=== PATIENT | female | born 1950 | race Caucasian/White ===

== ENCOUNTER 2017-03-28 05:54 | Day surgery (SDC) | payer OTHER, BC ==
[2017-03-19 15:52] VITALS: BMI 38.0
[2017-03-28] MEDS ORDERED: GENTAMICIN SO4 80 MG/2 ML VIAL ONE (07:24)
[2017-03-28] MEDS ORDERED: ceFAZolin SODIUM 1 GM VIAL ONE ×2 (07:24→07:59)
[2017-03-28] MEDS ORDERED: BUPIVACAINE HCL/PF 2.5 MG/ML - 30 ML VIAL IJ ONE (07:25)
[2017-03-28] MEDS ORDERED: MIDAZOLAM HCL 2 MG/2 ML SINGLE DOSE VIAL ONE (07:29)
[2017-03-28] MEDS ORDERED: ROCURONIUM BROMIDE 50 MG/5 ML VIAL ONE (07:29)
[2017-03-28] MEDS ORDERED: PROPOFOL 20 ML ONE (07:29)
[2017-03-28] MEDS ORDERED: DEXAMETHASONE SOD PHOSPHATE 4 MG/1 ML VIAL ONE ×2 (08:07→09:34)
[2017-03-28] MEDS ORDERED: ONDANSETRON 4 MG/2 ML VIAL ONE ×2 (08:07→09:34)
[2017-03-28] MEDS ORDERED: LIDOCAINE 1%/EPI 1:100000 (20 ML MULTI DOSE VIAL) INF ONE (08:16)
[2017-03-28] MEDS ORDERED: HYDROmorphone HCL/PF 1 MG/ML VIAL (FOR PYXIS CHARGING ONLY) ONE (08:22)
[2017-03-28] MEDS ORDERED: ePHEDrine SULFATE 50 MG/1 ML AMPULE ONE (08:39)
[2017-03-28] MEDS ORDERED: ONDANSETRON 4 MG/2 ML VIAL IVPUSH PRN (10:10)
[2017-03-28] MEDS ORDERED: oxyCODONE HCL 5 MG TABLET PO PRN (10:10)
[2017-03-28] MEDS ORDERED: ACETAMINOPHEN 325 MG TABLET (FP) PO PRN (10:10)
--- NOTE | 2017-03-28 10:11 | OP ---
Operative Note - Note: Operative Date: 03/28/17 Pre-Operative Diagnosis: chest wall deformity s/p breast reconstruction Operation: right TE exchange with silicone exchange, Left breast mastopexy with silicone implant placement, fat graphing from abdomen and flanks to right breast Findings: same Post-Operative Diagnosis: Same as Pre-op Surgeon: Shelton Ag Senior Research Fellow: Brii Weldon Anesthesiologist/BARREL CENTERER: Kamran Garcia Anesthesia: Local, MAC Estimated Blood Loss (mls): 50 Drains & Tubes with Location: none Operative Report Dictated: Yes
[2017-03-28] MEDS ORDERED: ACETAMINOPHEN INJECTION 100 ML IVPB ONE (10:47)
[2017-03-28] MEDS ORDERED: ACETAMINOPHEN 1000 MG/100 ML VIAL (NON FORMULARY) IVPB ONE (10:54)
[2017-03-28] MEDS ORDERED: oxyCODONE HCL 5 MG TABLET ONE ×2 (12:07→12:43)
[2017-03-28 12:19] VITALS: TEMP 98
[2017-03-28 14:53] VITALS: BP 136/71; PULSE 84
--- NOTE | 2017-04-01 11:36 | PATH ---
Surgical Pathology Report Patient Name: KATHARINA RODRIGUEZ [facility]. Rec. #: [id number] /Age/Gender: 1950 (Age: 66) / F Account: [id number] Location: [facility] AM[facility] Taken: 03/28/2017 Received: 03/28/2017 Reported: 04/01/2017 Physicians: Shelton Ag Specimen(s) Received A: RIGHT BREAST CAPSULE B: RIGHT BREAST EXPLANT C: LEFT BREAST SKIN AND TISSUE Clinical History Right post mastectomy Final Diagnosis A. SOFT TISSUE, RIGHT BREAST, EXCISION: FIBROUS TISSUE WITH AREAS OF FOREIGN BODY REACTION CONSISTENT WITH BREAST IMPLANT CAPSULE. NO CARCINOMA IDENTIFIED. B. CHROME TANNER, RIGHT BREAST, REMOVAL: BREAST IMPLANT (GROSS ONLY). C. SKIN AND SOFT TISSUE, LEFT BREAST, EXCISION: BENIGN SKIN AND SUBCUTANEOUS ADIPOSE TISSUE. Comment: See also [id number]. Electronically Signed Shaka Leslie M.D. Gross Description A. Received in formalin labeled "right breast capsule," is a 4.0 x 2.3 x 0.5 cm aggregate of multiple lopez, irregular portions of fibrous tissue, consistent with fibrous capsule. No discrete masses are identified. Motor Vehicle Escort Driver sections are submitted in one cassette. B. Received fresh labeled "right breast explant," is a 13.0 x 12.0 x 3.0 cm lopez, irregular device, consistent with a breast tissue stripper shovel operator. No soft tissue is present. No sections are submitted, gross only. C. Received in formalin labeled "left breast skin and tissue," is a 28 g, 7.0 x 6.5 x 2.0 cm aggregate of lopez, unremarkable skin fragments as well as a portion of fibroadipose tissue. Sectioning reveals minimal fibrous tissue. No definitive masses are identified. Motor Vehicle Escort Driver sections are submitted in one cassette. DL/03/29/2017 saudi03/29/2017
--- NOTE | 2017-04-03 10:00 | OP ---
DATE OF OPERATION: 03/28/2017 SURGEON: Hubert Ag MD ASSOCIATE TRAINER SURGEON: DOMINIC Garcia PREOPERATIVE DIAGNOSES: 1. Right acquired chest wall deformity status post right mastectomy for breast cancer. 2. Asymmetry of reconstructed chest wall. 3. Personal history of breast carcinoma. 4. Mechanical complication of breast implant. POSTOPERATIVE DIAGNOSES: 1. Right acquired chest wall deformity status post right mastectomy for breast cancer. 2. Asymmetry of reconstructed chest wall. 3. Personal history of breast carcinoma. 4. Mechanical complication of breast implant. OPERATIVE PROCEDURE: 1. Right breast reconstruction utilizing other technique. 2. Right breast capsulectomy. 3. Right breast removal of implant. 4. Replacement of right breast implant for reconstruction. 5. Left breast augmentation for symmetry in cancer. 6. Left breast mastopexy. OPERATIVE INDICATION: The patient is a woman who underwent right breast mastectomy for breast cancer and now presents with gross asymmetry of the chest wall and requires the above procedures. The risks and benefits of surgical versus nonsurgical alternatives as well as the material complications were described to the patient on multiple occasions preoperatively. She agreed to the planned procedure prior and also today in the holding area where she was marked in the standing position. OPERATIVE PROCEDURE IN DETAIL: The patient was taken to the operating room where after an induction of general anesthesia in supine position, both arms were extended and padded and Venodyne boots were placed. The entire chest wall was prepped with ChloraPrep solution over the chest and abdomen. At this point sterile drapes were placed in the usual fashion and timeout was called. After allowing topical anesthesia and hemostasis, injection was made into the deep areas of the flank region for harvest of reconstructive tissue, and also the right mastectomy scar was injected with 1% local lidocaine anesthesia with 1:100,000 epinephrine. The left breast was circumscribed with a No. 42 nipple-areolar cutter, and the pattern which was made for James mastopexy on the left breast. These areas were injected with 1% local lidocaine anesthesia, 1:100,000 epinephrine. At this point an incision was made through the mastectomy scar down through the subcutaneous tissue to the deep tissues of the chest wall. This was carried over the fascia of the breast and then down to the underlying capsule. I then performed a capsulectomy by incising the capsule and removing the implant. This was sent for pathologic diagnosis. Once this was removed, the expansion of the pocket was created. A capsulectomy was performed, removing portions of the capsule and sending them for pathologic diagnosis. The pocket was expanded to accept the new implant, which was placed after copious irrigation with triple antibiotic solution and hemostasis. A Natrelle 605-mL Inspira cohesive breast implant, style SCF, was placed into the right breast pocket. Good shape and contour were seen, but further reconstruction was required. Incision was made in the flank area down through the skin into the deep subcutaneous tissue, harvesting tissue for the reconstruction of the right breast. This tissue was transferred to the back table and prepared for reconstructive purposes. It was washed, cleansed, and prepared. At this point attention was turned to the left breast. A circumareolar incision was made around the No. 42 nipple-areolar cutter. The area was deepithelialized according to the pattern, and then an incision was made down through the deep tissue of the breast down to underlying subcutaneous tissue of the chest wall. A pocket was created superiorly from the second rib medially to the sternal fibers and laterally to the anterior axillary fold and down to the inframammary fold. At this point an implant was chosen to match the opposite side. A Natrelle 410 highly cohesive anatomically shaped silicone-filled breast implant of style FM, 350 mL, was placed into the left breast pocket. Good shape and contour were seen with tacking, and then wounds were advanced to close upon themselves using 2-0 PDS suture on the deep tissue, 3-0 PDS on the deep dermal tissue, and the nipple was circumscribed into its new position and tacked using 3-0 Biosyn and 4-0 Biosyn in a subcuticular fashion. The right chest wall wound was then addressed. The tissue was transferred to the superior, inferior, medial, and central portions of the right reconstructed breast and showed good shape and contour with symmetry to the opposite side. The wound was closed in multiple layers using 2-0 PDS suture on the deep fascia and capsule, 2-0 in the deep subcutaneous plane, and then 4-0 Biosyn in a subcuticular fashion. All wounds were dressed sterilely with Dermabond and Steri-Strips. She tolerated the procedure well. She was placed into a Surgi-Bra on the operating room table, awakened, and transferred after extubation to the recovery room. HUBERT AG M.D. [id number]
== END 2017-03-28 13:55 | disposition home or self-care (01) ==
LOC: FASU 05:54
PROVIDERS: ATTEND Plastic Surgery
PROC: 0H0U0JZ Alteration of Left Breast with Synthetic Substitute, Open Approach (ICD-10-PCS; 2017-03-28)
PROC: 0HPT0JZ Removal of Synthetic Substitute from Right Breast, Open Approach (ICD-10-PCS; principal; 2017-03-28 08:16)
PROC: 0HRT0JZ Replacement of Right Breast with Synthetic Substitute, Open Approach (ICD-10-PCS; 2017-03-28 08:16)
PROC: 0HRT07Z Replacement of Right Breast with Autologous Tissue Substitute, Open Approach (ICD-10-PCS; 2017-03-28 08:16)
DX: M95.4 Acquired deformity of chest and rib (principal); Z90.11 Acquired absence of right breast and nipple; Z85.3 Personal history of malignant neoplasm of breast; N65.0 Deformity of reconstructed breast; T85.49XA Other mechanical complication of breast prosthesis and implant, initial encounter; Y83.8 Other surgical procedures as the cause of abnormal reaction of the patient, or of later complication, without mention of misadventure at the time of the procedure; Y92.9 Unspecified place or not applicable
CPT/HCPCS: 88300-TC; 88304-TC; 94760

== ENCOUNTER 2019-10-21 05:49 | Day surgery (SDC) | payer OTHER, BC ==
[2019-10-12 12:56] VITALS: BMI 36.5
[2019-10-21] MEDS ORDERED: SEVOFLURANE 250 ML BTL ONE (06:59)
[2019-10-21] MEDS ORDERED: DESFLURANE GAS 240 ML BOTTLE IH ONE ×2 (06:59→07:01)
[2019-10-21] MEDS ORDERED: PROPOFOL 20 ML ONE ×2 (07:30)
[2019-10-21] MEDS ORDERED: SUCCINYLCHOLINE CHLORIDE 200 MG/10 ML SYRINGE ONE (07:30)
[2019-10-21] MEDS ORDERED: MIDAZOLAM HCL 2 MG/2 ML SINGLE DOSE VIAL ONE (07:30)
[2019-10-21] MEDS ORDERED: LIDOCAINE HCL/PF 2% SDV 5ML VIAL ONE (07:31)
[2019-10-21] MEDS ORDERED: DEXAMETHASONE SOD PHOSPHATE 4 MG/1 ML VIAL ONE (08:09)
[2019-10-21] MEDS ORDERED: KETOROLAC TROMETHAMINE 30 MG/1 ML VIAL ONE (08:09)
[2019-10-21] MEDS ORDERED: ceFAZolin SODIUM 1 GM VIAL ONE (08:09)
[2019-10-21] MEDS ORDERED: ONDANSETRON 4 MG/2 ML VIAL ONE ×2 (08:09→10:25)
[2019-10-21] MEDS ORDERED: EPHEDRINE SULFATE/0.9% NACL/PF 50 MG/10 ML SYRINGE NR ONE (08:25)
[2019-10-21] MEDS ORDERED: GUM MASTIC/STORAX/MSAL/ALCOHOL 1 DRP DROPSBTL MC ONE (09:31)
[2019-10-21] MEDS ORDERED: ONDANSETRON 4 MG/2 ML VIAL IVPUSH PRN (09:59)
[2019-10-21] MEDS ORDERED: oxyCODONE HCL 5 MG TABLET PO PRN ×2 (09:59)
[2019-10-21] MEDS ORDERED: PROMETHAZINE HCL 25 MG/1 ML VIAL IVPUSH PRN (09:59)
--- NOTE | 2019-10-21 10:09 | PN ---
Progress Note (short form) - Note Progress Note: 10/21/2019 Surgeon: Dr. Oliver [place] Baggage Screener: Chica Raza PA-C Removed left breast textured implant: STYLE 410 FM LoT [id number] Allergan 350 cc
[2019-10-21] MEDS ORDERED: oxyCODONE HCL 5 MG TABLET ONE ×2 (11:11→12:30)
[2019-10-21 12:26] VITALS: TEMP 97.4
[2019-10-21 13:07] VITALS: BP 126/74; PULSE 86
--- NOTE | 2019-10-22 06:23 | OP ---
DATE OF OPERATION: 10/21/2019 ATTENDING SURGEON: Ney Collado MD PHYSICAL EDUCATION AIDE: Chica Raza PA-C PREOPERATIVE DIAGNOSIS: Previous breast reconstruction with right implant and symmetry procedure with textured implant placement and asymmetry. POSTOPERATIVE DIAGNOSIS: Previous breast reconstruction with right implant and symmetry procedure with textured implant placement and asymmetry. PROCEDURE PERFORMED: 1. Left removal of textured implant. 2. Left breast mastopexy. DRAINS: One 15 mm round Wili drain. ESTIMATED BLOOD LOSS: 60 mL. FLUIDS ADMINISTERED: Crystalloid solution 1.2 L. ANESTHESIA: General laryngeal mask anesthesia. ANESTHESIOLOGIST: SARATH Craig ESTIMATED BLOOD LOSS: Minimal. DESCRIPTION OF PROCEDURE: Patient was brought to the operating room, placed supine on the operating table. After induction of general laryngeal mask anesthesia, patient's abdomen and breasts were prepped with topical chlorhexidine solution and draped with sterile drapes. This completed, an appropriate timeout was performed, identifying the patient, the nature of the procedure, allowing all operative participants to ask questions and to raise concerns as indicated. Once this was finished, a sterile surgical marking pen was used to refresh the preoperative outline and then a 42-mm cookie cutter imprint was made circularly around the nipple-areolar complex, and a number 10 blade was used to incise the outline of a James pattern mastopexy utilizing a superior pole. The intervening skin between the circular imprint and the outside James pattern was then deepithelialized with a sharp facelift scissor, and this completed hemostasis was assured with the Bovie cautery. The PEAK PlasmaBlade was used to incise the breast parenchyma to create a medial and lateral breast pillar, transposing the nipple superiorly and wrapping the James pattern closure along the vertical axis of the breast. A layered closure was completed with interrupted 3-0 PDS for the deep dermal layer, followed by a running 3-0 Monocryl subcuticular suture for the periareolar and vertical axis incisions. A 15-mm round Wili drain was then placed through a remote stab incision secured with 3-0 nylon. The lower pole breast horizontal incision was then outlined, incised with the PEAK PlasmaBlade, and passed off the table as a specimen. With this completed, a layered closure was performed along the lower aspect with interrupted 2-0 Vicryl for the deep dermal layer, followed by a running 3-0 Monocryl subcuticular suture. Finally Mastisol and Steri-Strips were applied. Fluff gauze dressings with an ABD pad and a surgical bra were placed. Patient was extubated, transferred to the post anesthesia care unit in stable condition. MESHA COLLADO M.D. [id number]
--- NOTE | 2019-10-26 11:11 | PATH ---
Surgical Pathology Report Patient Name: KATHARINA RODRIGUEZ Med. Rec. #: [id number] /Age/Gender: 1950 (Age: 69) / F Account: [id number] Location: [facility] AMB[facility]ATORY Taken: 10/21/2019 Received: 10/21/2019 Reported: 10/26/2019 Physicians: Nye Oliver Specimen(s) Received A: EXPLANT LEFT BREAST B: SKIN AND TISSUE LEFT BREAST Clinical History History of right breast cancer, acquired deformity Final Diagnosis A. SAAS ARCHITECT, LEFT BREAST, REMOVAL: SAAS ARCHITECT CONSISTENT WITH BREAST IMPLANT (GROSS ONLY). B. SKIN AND SOFT TISSUE, LEFT BREAST, EXCISION: SKIN WITH SEBORRHEIC KERATOSIS, AND UNREMARKABLE SUBCUTANEOUS ADIPOSE TISSUE. Electronically Signed Shaka Leslie M.D. Gross Description A. Received fresh labeled "explant left breast," is a 13.0 x 12.5 x 4.0 cm lopez, intact foreign body, consistent with a breast implant. No soft tissue is present. No sections are submitted, gross only. B. Received in formalin labeled "skin and tissue left breast," are 2 lopez, irregular, unoriented portions of skin with underlying soft tissue measuring 4.5 x 1.2 x 1.0 cm and 15.5 x 0.5 x 0.5 cm. The larger portion displays a focal 0.7 x 0.4 cm lopez, slightly raised epidermal lesion. Fill Manager sections are submitted in 2 cassettes as follows: 1-epidermal lesion; 2-additional personal banking representative sections. /10/23/2019 saudi/10/23/2019
== END 2019-10-21 13:00 | disposition home or self-care (01) ==
LOC: FASU 05:49
PROVIDERS: ATTEND Surgery Plastic and Reconstructive Surgery
PROC: 0HQU0ZZ Repair Left Breast, Open Approach (ICD-10-PCS; principal; 2019-10-21 08:00)
PROC: 0HPU0JZ Removal of Synthetic Substitute from Left Breast, Open Approach (ICD-10-PCS; 2019-10-21 08:00)
DX: Z98.82 Breast implant status (principal); N65.1 Disproportion of reconstructed breast
CPT/HCPCS: 82962; 88300-TC; 88305-TC; 94760